=== PATIENT | male | born 1990 | race Caucasian/White ===

== ENCOUNTER 2016-08-19 16:06 | Outpatient (CLI) | payer OTHER ==
--- NOTE | 2016-08-19 17:29 | XRAY Preliminary Report ---
Exam: XR Hand 3 View RT IMPRESSION: 1. Diffuse right hand swelling. 2. No new fractures. Old fractures of the ulna styloid and right fifth metacarpal. 3. Normal alignment. [facility] SITE ID: [id number]
--- NOTE | 2016-08-19 17:59 | XRAY Report ---
EXAM: RIGHT HAND RADIOGRAPHY EXAM DATE: 08/19/2016 04:29 p.m. CLINICAL HISTORY: Rright hand injury/contusion with swelling. COMPARISON: 04/02/2006. TECHNIQUE: 3 views. FINDINGS: Bones: Chronic fracture deformities of the mid right fifth metacarpal and ulnar styloid. No new fract ures. Joints: Normal. No subluxations. Soft Tissues: Diffuse right hand swelling noted. No radiopaque foreign bodies. IMPRESSION: 1. Diffuse right hand swelling. 2. No new fractures. Old fractures of the ulna styloid and right fifth metacarpal. 3. Normal alignment. [facility] Referring Provider Line: [phone] SITE ID: [id number]
== END 2016-08-19 16:07 | disposition home or self-care (01) ==
LOC: DI 16:06
PROVIDERS: ATTEND Emergency Medicine
DX: S60.221A Contusion of right hand, initial encounter (principal)

== ENCOUNTER 2018-04-06 10:28 | Outpatient (CLI) | payer MEDICAID | END 2018-04-06 10:29 | disposition critical access hospital (66) | LOC: EMS 10:28 | PROVIDERS: ATTEND Surgery | DX: R25.0 Abnormal head movements (principal) | CPT/HCPCS: A0425; A0427; A0999 ==

== ENCOUNTER 2018-04-06 10:58 | Emergency (ER) | payer MEDICAID ==
[2018-04-06] MEDS ORDERED: SODIUM CHLORIDE 0.9% 1,000 ML IV ONE ×3 (11:10→18:01)
[2018-04-06 11:33] LABS: BASOPHILS % (AUTO) 0.2 %; EOSINOPHILS # (AUTO) 0.1 10^3/uL (0.0-0.7); EOSINOPHILS % (AUTO) 0.3 %; HGB - HEMOGLOBIN 13.7 g/dL (14.0-18.0); LYMPHOCYTES # (AUTO) 0.6 10^3/uL (1.5-3.5); LYMPHOCYTES % (AUTO) 3.8 %; MEAN CORPUSCULAR HEMOGLOBIN 29.8 pg (27.0-31.0); MEAN CORPUSCULAR HGB CONC 36.1 g/dL (32.0-36.0); MEAN CORPUSCULAR VOLUME 82.5 fL (80.0-94.0); MEAN PLATELET VOLUME 8.4 fL (7.4-11.4); MONOCYTES # (AUTO) 1.2 10^3/uL (0.0-1.0); MONOCYTES % (AUTO) 7.9 %; NEUTROPHILS # (AUTO) 13.5 10^3/uL (1.5-6.6); NEUTROPHILS % (AUTO) 87.8 %; PLT - PLATELET COUNT 143 10^3/uL (130-450); RED BLOOD COUNT 4.61 10^6/uL (4.70-6.10); RED CELL DISTRIBUTION WIDTH 13.4 % (12.0-15.0); WHITE BLOOD COUNT 15.4 x10^3/uL (4.8-10.8)
[2018-04-06 11:44] LABS: ALBUMIN 4.2 g/dL (3.2-5.5); ALBUMIN/GLOBULIN RATIO 1.7 (1.0-2.2); BILIRUBIN,TOTAL 1.6 mg/dL (0.2-1.0); CALCIUM 8.6 mg/dL (8.5-10.3); TOTAL PROTEIN 6.7 g/dL (6.7-8.2)
[2018-04-06 12:33] LABS: MUDS CUTOFF CONCENTRATIONS CUTOFF CONC BELOW:
[2018-04-06 12:43] LABS: AMPHETAMINE SCREEN,URINE POSITIVE (NEGATIVE); BENZODIAZEPINES SCREEN, URINE NEGATIVE (NEGATIVE); COCAINE SCREEN URINE NEGATIVE (NEGATIVE); METHADONE SCREEN, URINE NEGATIVE (NEGATIVE); METHAMPHETAMINES SCREEN, URINE POSITIVE (NEGATIVE); OPIATE SCREEN, URINE POSITIVE (NEGATIVE); OXYCODONE SCREEN, URINE NEGATIVE (NEGATIVE); PROPOXYPHENE SCREEN, URINE NEGATIVE (NEGATIVE); TRICYCLIC ANTIDEPRESSANT,URINE NEGATIVE (NEGATIVE)
--- NOTE | 2018-04-06 18:00 | ED Physician Documentation ---
PD HPI ALTERED MENTAL STATUS - Stated complaint Stated Complaint: OD - Chief complaint Chief Complaint: Neuro - History obtained from History obtained from: Patient, EMS - History of Present Illness Quality / character: Unresponsive Contributing factors: Substance abuse Basline status: Alert and oriented X 3, Ambulatory Treatment CUSTOMS GUARD: Narcan - Additional information Additional information: The patient is a 28-year-old male who arrives via ambulance after a female slunk skin curer called 911 because of agitation. The patient had been banging his head on the wall and furniture. When paramedics arrived they found him unresponsive except for painful stimulation. As they were bringing him to the ambulance he began dropping his oxygen saturation. Narcan was administered IV, with immediate response. He has a history of drug use, and was released from retirement 1 week ago. 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 Review of Systems Unable to obtain: AMS, Confused GI: denies: Vomiting Neurologic: reports: Altered mental status PD PAST MEDICAL HISTORY - Past Medical History Neuro: Head injury Psych: Anxiety, Panic attacks - Past Surgical History Past Surgical History: Yes - Present Medications Home Medications: Ambulatory Orders Medication Instructions Recorded Confirmed No Known Home Medications 04/06/18 04/06/18 - Allergies Allergies/Adverse Reactions: Allergies Allergy/AdvReac Type Severity Reaction Status Date / Time codeine Allergy Itching Verified 02/12/14 16:03 - Social History Does the pt smoke?: Yes Smoking Status: Current every day smoker Does the pt drink ETOH?: No Does the pt have substance abuse?: Yes Substance Use and Type: Meth, Heroin - Immunizations Immunizations are current?: Yes PD ED PE NORMAL - Vitals Vital signs reviewed: Yes (Tachycardic and febrile.) - General General: Well developed/nourished, Other (Awake male who is reluctant to answer questions. He is moving all extremities. On initial examination he seems to understand verbal communication, but his not willing to answer questions reliably.) - HEENT HEENT: PERRL, EOMI, Pharynx benign, Other (There is swelling and ecchymosis of his lower lip, with superficial abrasion of the buccal mucosa. Teeth are intact. Pupils are 3-4 mm, equal and reactive.) - Neck Neck: Supple, no meningeal sign, No adenopathy, No JVD - Cardiac Cardiac: No murmur, Other (Rapid rate, regular rhythm, without murmur.) - Respiratory Respiratory: Clear bilaterally - Abdomen Abdomen: Soft, Non tender, Other (Scaphoid abdomen.) - Back Back: No CVA TTP, No spinal TTP - Derm Derm: No rash - Extremities Extremities: No edema, No calf tenderness / cord, Other (There is a 1 cm blister on the tip of his left great toe.) - Neuro Neuro: No motor deficit, No sensory deficit, Other (Awake, and does respond to some questions; moves all extremities well.) Eye Opening: Spontaneous Motor: Obeys Commands Verbal: Confused GCS Score: 14 Results - Vitals Vitals: Oxygen O2 Source Room air - Labs Labs: Laboratory Tests 04/06/18 04/06/18 04/06/18 11:20 11:20 11:30 WBC 15.4 H RBC 4.61 L Hgb 13.7 L Hct 38.0 L MCV 82.5 MCH 29.8 MCHC 36.1 H RDW 13.4 Plt Count 143 MPV 8.4 Neut # (Auto) 13.5 H Lymph # (Auto) 0.6 L [place] # (Auto) 1.2 H Eos # (Auto) 0.1 Baso # (Auto) 0.0 Absolute Nucleated RBC 0.01 Nucleated RBC % 0.1 Sodium 131 L Potassium 3.8 Chloride 97 L Carbon Dioxide 20 L Anion Gap 14.0 H BUN 28 H Creatinine 1.0 Estimated GFR (MDRD) 89 Glucose 77 Calcium 8.6 Total Bilirubin 1.6 H AST 188 H ALT 106 H Alkaline Phosphatase 64 Total Protein 6.7 Albumin 4.2 Globulin 2.5 Albumin/Globulin Ratio 1.7 Lipase 28 Urine Opiates Screen POSITIVE H Ur Oxycodone Screen NEGATIVE Urine Methadone Screen NEGATIVE Ur Propoxyphene Screen NEGATIVE Ur Barbiturates Screen NEGATIVE Ur Tricyclics Screen NEGATIVE Ur Phencyclidine Scrn NEGATIVE Ur Amphetamine Screen POSITIVE H U Methamphetamines Scrn POSITIVE H U Benzodiazepines Scrn NEGATIVE Urine Cocaine Screen NEGATIVE U Cannabinoids Screen POSITIVE H - Rads (name of study) Head CT w/o Radiology: Prelim report reviewed, EMP read contemporaneously, See rad report (No acute intracranial abnormality.) PD MEDICAL DECISION MAKING - ED course Complexity details: reviewed results, re-evaluated patient, considered differential, d/w patient ED course: The patient's presentation is most consistent with altered mental status from drug overdose, with a urine drug screen that is positive for methamphetamine, opiates, and cannabis. His fever, agitation, and tachycardia is most likely due to methamphetamine. Paramedics were initially called because of agitation, but upon their arrival he was sedated, consistent with heroin overdose. After administration of Narcan the patient immediately became more responsive. On my initial examination he was subdued but coherent. As he was observed in the emergency department he went into a more methamphetamine characteristic fidgety state, and became less coherent. Head CT without contrast reveals no acute intracranial abnormality. He continued to be observed, and over several hours period of time he gradually became more coherent. Treatment in the emergency department included administration of normal saline, 3 L IV, and Tylenol 650 mg orally. He stood up numerous times to urinate. Department of corrections officers stayed at the bedside throughout the patient's time in the emergency department. He is being discharged in custody of DOC officers. I spoke with the RN at the [employer] of Corrections. Departure - Departure Disposition: 01 Home, Self Care Clinical Impression: Drug overdose, multiple drugs Qualifiers: Encounter type: initial encounter Injury intent: undetermined intent Qualified Code(s): T50.904A - Poisoning by unspecified drugs, medicaments and biological substances, undetermined, initial encounter Facial contusion Qualifiers: Encounter type: initial encounter Qualified Code(s): S00.83XA - Contusion of other part of head, initial encounter Condition: Stable Instructions: ED Drug Abuse General Comments: Medically clear for booking into custodial. Discharge Date/Time: 04/06/18 19:41
[2018-04-06] MEDS ORDERED: ACETAMINOPHEN 325 MG TABLET PO STA (18:12)
--- NOTE | 2018-04-06 19:17 | CT Report ---
Reason: altered mental status, with h/o head banging. Procedure Date: 04/06/2018 Accession Number: [id number] / [id number] Procedure: CT - Head W/O CPT Code: FULL RESULT: EXAM: CT HEAD EXAM DATE: 04/06/2018 06:59 PM. CLINICAL HISTORY: Altered mental status, with history of head banging. COMPARISON: Facial bones without 02/12/2014 3:33 PM Head without 02/12/2014 3:31 PM. TECHNIQUE: Multiaxial CT images were obtained from the foramen magnum to the vertex. Reformats: Sagittal and coronal. IV contrast: None. In accordance with CT protocol optimization, one or more of the following dose reduction techniques were utilized for this exam: automated exposure control, adjustment of mA and/or KV based on patient size, or use of iterative reconstructive technique. FINDINGS: Parenchyma: Chronic calcification in the region of the head of the right caudate nucleus likely postinflammatory. There is some motion artifact limiting evaluation of the skull base. Otherwise no obvious infarction or hemorrhage. Extraaxial Spaces: Normal for age. No subdural or epidural collections identified. Ventricles: Normal in size and position. Sinuses and Orbits: Imaged paranasal sinuses, orbits, and mastoids show no significant abnormality. Bones: No evidence of fracture or calvarial defect. Other: None. IMPRESSION: No acute intracranial abnormality. [facility]
[2018-04-06 19:37] VITALS: BP 125/72
== END 2018-04-06 19:41 | disposition home or self-care (01) ==
LOC: EDUNIT# → ED 10:58
DX: T40.604A Poisoning by unspecified narcotics, undetermined, initial encounter (principal); T40.7X4A Poisoning by cannabis (derivatives), undetermined, initial encounter; R41.82 Altered mental status, unspecified; S00.83XA Contusion of other part of head, initial encounter; W22.09XA Striking against other stationary object, initial encounter; R00.0 Tachycardia, unspecified; F17.200 Nicotine dependence, unspecified, uncomplicated
CPT/HCPCS: 36415; 70450; 80053; 80306; 83690; 85025; 96360; 96361; 99284; A9270

== ENCOUNTER 2019-01-13 20:50 | Emergency (ER) | payer OTHER, MEDICAID ==
[2019-01-13 21:00] VITALS: BP 116/59
[2019-01-13] MEDS ORDERED: PROPARACAINE 0.5% OPHTH DROPS 15 ML EACHEYE STA (21:02)
[2019-01-13] MEDS ORDERED: ERYTHROMYCIN OPHTH OINT 1 GM TUBE EACHEYE STA (21:23)
--- NOTE | 2019-01-13 21:27 | ED Physician Documentation ---
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 A day of eye pain and foreign body sensation without visual deficit. No history of eye problems or contact use.) Review of Systems Constitutional: reports: Reviewed and negative Throat: reports: Reviewed and negative Cardiac: reports: Reviewed and negative Respiratory: reports: Reviewed and negative PD PAST MEDICAL HISTORY - Past Medical History Past Medical History: Yes Neuro: Head injury Psych: Anxiety, Panic attacks - Past Surgical History Past Surgical History: Yes - Present Medications Home Medications: Ambulatory Orders Medication Instructions Recorded Confirmed Erythromycin Base [Erythromycin 1 appful OP 5XD 7 Days #1 oint...g. 01/13/19 Ophthalmic Ointment] - Allergies Allergies/Adverse Reactions: Allergies Allergy/AdvReac Type Severity Reaction Status Date / Time codeine Allergy Itching Verified 02/12/14 16:03 - Social History Does the pt smoke?: Yes Smoking Status: Current every day smoker Does the pt drink ETOH?: No Does the pt have substance abuse?: Yes - Immunizations Immunizations are current?: Yes - POLST Patient has POLST: No PD ED PE NORMAL - Vitals Vital signs reviewed: Yes - General General: Alert and oriented X 3, No acute distress - HEENT HEENT: Other (On exam there are couple small mobile foreign bodies, no stuck corneal foreign body. On fluorescein examination he had bilateral welders burn s.) - Neck Neck: Supple, no meningeal sign, No bony TTP - Neuro Neuro: Alert and oriented X 3, Normal speech Results - Vitals Vitals: Vital Signs - 24 hr 01/13/19 20:57 Temperature 36.9 C Heart Rate 88 Respiratory 18 Rate Blood Pressure 116/59 L O2 Saturation 97 Oxygen O2 Source Room air PD MEDICAL DECISION MAKING - ED course ED course: After the administration of proparacaine he was pain-free, he was irrigated. No further floor seen uptake except for the welders bond. Advised on the use of proper eye protection at work. The proparacaine was diluted tenfold with saline and he was given 2 mL of this in the bottle to use as needed for no more than 24 hours for pain. Departure - Departure Disposition: 01 Home, Self Care Clinical Impression: Welders' keratitis of both eyes Condition: Good Record reviewed to determine appropriate education?: Yes Instructions: ED Keratitis UV Follow-Up: Bandar Humphrey MD [Provider Admit Priv/Credential] - Within 3 Days Prescriptions: Erythromycin Base [Erythromycin Ophthalmic Ointment] 1 appful OP 5XD 7 Days #1 oint...g. Comments: It is imperative to wear appropriate eye protection at work. For pain you can take 1 drop of the diluted proparacaine every 2 hours as needed for pain, do not use it for more than 24 hours. Return for new or worsening symptoms.
== END 2019-01-13 21:38 | disposition home or self-care (01) ==
LOC: ED 20:50
DX: H16.133 Photokeratitis, bilateral (principal); T15.82XA Foreign body in other and multiple parts of external eye, left eye, initial encounter; T15.81XA Foreign body in other and multiple parts of external eye, right eye, initial encounter; W89.8XXA Exposure to other man-made visible and ultraviolet light, initial encounter; Y93.89 Activity, other specified; Y99.0 Civilian activity done for income or pay; F17.200 Nicotine dependence, unspecified, uncomplicated
CPT/HCPCS: 99282; 99283; J3490

== ENCOUNTER 2019-09-14 05:10 | Emergency (ER) | payer MEDICAID, OTHER ==
--- NOTE | 2019-09-14 05:10 | ED Physician Documentation ---
PD HPI ABD PAIN - Stated complaint Stated Complaint: ABD PAIN - History obtained from History obtained from: Patient, EMS - History of Present Illness Timing - onset: How many hours ago (2) Timing - duration: Hours Timing - details: Abrupt onset, Still present in ED (rapidly improving) Pain level max: 10 Pain level now: 6 Quality: Pain Location: Periumbilical Radiation: Other (no radiation) Improved by: Other (no ameliorating factors) Worsened by: Position ("standing straight up") Associated symptoms: No: Fever, Nausea, Vomiting, Diarrhea, Constipation, Chest pain Similar symptoms before: Has not had sx before Recently seen: Not recently seen - Additional information Additional information: BIBA. 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 Denies h/o similar symptoms. Denies n/v, denies diarrhea/constipation. Without intervention (such as medications), the pain has been rapidly improving shortly before this evaluation. Review of Systems Constitutional: denies: Fever, Chills, Sweats Cardiac: reports: Reviewed and negative Respiratory: reports: Reviewed and negative GI: reports: Abdominal Pain. denies: Abdominal Swelling, Nausea, Vomiting, Constipation, Diarrhea : denies: Dysuria, Frequency Musculoskeletal: denies: Back pain PD PAST MEDICAL HISTORY - Past Medical History Past Medical History: No - Present Medications Home Medications: Ambulatory Orders Medication Instructions Recorded Confirmed Erythromycin Base [Erythromycin 1 appful OP 5XD 7 Days #1 oint...g. 01/13/19 Ophthalmic Ointment] - Allergies Allergies/Adverse Reactions: Allergies Allergy/AdvReac Type Severity Reaction Status Date / Time codeine Allergy Itching Verified 09/14/19 05:19 Penicillins AdvReac Unknown Verified 09/14/19 05:19 - Living Situation Living Arrangement: reports: At home - Social History Does the pt have substance abuse?: No Substance Use and Type: Other (h/o opiate and methamphetamine use) PD ED PE NORMAL - Vitals Vital signs reviewed: Yes - General General: Alert and oriented X 3, No acute distress, Well developed/nourished - HEENT HEENT: Moist mucous membranes - Cardiac Cardiac: RRR, No murmur - Respiratory Respiratory: No respiratory distress, Clear bilaterally - Abdomen Abdomen: Normal bowel sounds, Soft, Non tender, Non distended - Derm Derm: Normal color, Warm and dry Results - Vitals Vitals: Oxygen O2 Source Room air - Labs Labs: Laboratory Tests 09/14/19 09/14/19 09/14/19 05:39 05:39 05:45 WBC 7.4 RBC 4.72 Hgb 13.9 L Hct 39.8 L MCV 84.3 MCH 29.4 MCHC 34.9 RDW 12.6 Plt Count 173 MPV 10.2 Neut # (Auto) 5.2 Lymph # (Auto) 1.4 L Cross # (Auto) 0.6 Eos # (Auto) 0.1 Baso # (Auto) 0.0 Absolute Nucleated RBC 0.00 Nucleated RBC % 0.0 Sodium 137 Potassium 4.0 Chloride 105 Carbon Dioxide 25 Anion Gap 7.0 BUN 26 H Creatinine 1.0 Estimated GFR (MDRD) 88 L Glucose 96 Calcium 9.4 Total Bilirubin 1.4 H AST 26 ALT 21 Alkaline Phosphatase 36 L Total Protein 7.3 Albumin 4.9 Globulin 2.4 Albumin/Globulin Ratio 2.0 Lipase 29 Urine Color YELLOW Urine Clarity CLEAR Urine pH 5.5 Ur Specific [place] >=1.030 H Urine Protein NEGATIVE Urine Glucose (UA) NEGATIVE Urine Ketones NEGATIVE Urine Occult Blood NEGATIVE Urine Nitrite NEGATIVE Urine Bilirubin NEGATIVE Urine Urobilinogen 0.2 (NORMAL) Ur Leukocyte Esterase NEGATIVE Ur Microscopic Review NOT INDICATED Urine Culture Comments NOT INDICATED - Rads (name of study) CT A/P Radiology: Prelim report reviewed, See rad report PD MEDICAL DECISION MAKING - ED course Complexity details: reviewed old records, reviewed results, re-evaluated patient, considered differential, d/w patient Departure - Departure Disposition: 01 Home, Self Care Clinical Impression: Enteritis Condition: Good Instructions: ED Gastroenteritis Non Infec Forms: Activity restrictions Discharge Date/Time: 09/14/19 08:08
[2019-09-14] MEDS ORDERED: KETOROLAC 30 MG/ML VIAL IVP STA (05:22)
[2019-09-14 05:48] LABS: BASOPHILS % (AUTO) 0.3 %; EOSINOPHILS # (AUTO) 0.1 10^3/uL (0.0-0.7); EOSINOPHILS % (AUTO) 1.8 %; HGB - HEMOGLOBIN 13.9 g/dL (14.0-18.0); LYMPHOCYTES # (AUTO) 1.4 10^3/uL (1.5-3.5); MEAN CORPUSCULAR HEMOGLOBIN 29.4 pg (27.0-31.0); MEAN CORPUSCULAR HGB CONC 34.9 g/dL (32.0-36.0); MEAN CORPUSCULAR VOLUME 84.3 fL (80.0-94.0); MEAN PLATELET VOLUME 10.2 fL (7.4-11.4); MONOCYTES # (AUTO) 0.6 10^3/uL (0.0-1.0); MONOCYTES % (AUTO) 7.7 %; NEUTROPHILS # (AUTO) 5.2 10^3/uL (1.5-6.6); NEUTROPHILS % (AUTO) 70.8 %; PLT - PLATELET COUNT 173 10^3/uL (130-450); RED BLOOD COUNT 4.72 10^6/uL (4.70-6.10); RED CELL DISTRIBUTION WIDTH 12.6 % (12.0-15.0); WHITE BLOOD COUNT 7.4 x10^3/uL (4.8-10.8)
[2019-09-14 05:54] LABS: BILIRUBIN,URINE NEGATIVE (NEGATIVE); GLUCOSE, URINE (UA) NEGATIVE (NEGATIVE); KETONES,URINE (UA) NEGATIVE (NEGATIVE); LEUKOCYTE ESTERASE, URINE NEGATIVE (NEGATIVE); NITRITE,URINE NEGATIVE (NEGATIVE); OCCULT BLOOD,URINE NEGATIVE (NEGATIVE); PH,URINE 5.5 PH (5.0-7.5); PROTEIN,URINE NEGATIVE (NEGATIVE); UROBILINOGEN,URINE 0.2 (NORMAL) E.U./dL (NORMAL)
[2019-09-14 05:55] LABS: CLARITY,URINE CLEAR (CLEAR)
[2019-09-14 06:00] LABS: ALBUMIN 4.9 g/dL (3.2-5.5); BILIRUBIN,TOTAL 1.4 mg/dL (0.2-1.0); CALCIUM 9.4 mg/dL (8.5-10.3); TOTAL PROTEIN 7.3 g/dL (6.7-8.2)
[2019-09-14 06:09] VITALS: BP 124/71
--- NOTE | 2019-09-14 08:53 | CT Report ---
PROCEDURE: Abdomen/Pelvis WO INDICATIONS: abd. pain TECHNIQUE: Noncontrast 5 mm thick sections acquired from the diaphragms to the symphysis. 5 mm coronal and sagi ttal reformats were then performed. For radiation dose reduction, the following was used: automated exposure control, adjustment of mA and/or kV according to patient size. COMPARISON: None. FINDINGS: Image quality: Excellent. ABDOMEN: Lung bases: Lung bases are clear. Heart size is normal. Solid organs: Liver and spleen are normal in size. Gallbladder is within normal limits Pancreas is normal in contours. No adrenal nodules. Kidneys are normal in size, without hydronephrosis or neph rolithiasis. Peritoneum and bowel: Multiple mildly dilated fluid-filled loops of small bowel within the pelvis. No free fluid or air. Appendix not seen. No evidence of appendicitis. Nodes and vessels: No retroperitoneal or mesenteric adenopathy by size criteria. Aorta and inferior vena cava are normal in caliber. Miscellaneous: No ventral hernias. PELVIS: Genitourinary: Urinary bladder is decompressed. Miscellaneous: No inguinal hernias or adenopathy. Bones: No suspicious bony lesions. No vertebral body compression fractures. IMPRESSION: 1. No evidence of urinary tract calcification, nor obstruction. 2. Fluid-filled and mildly distended small bowel loops, suggestive of gastroenteritis. 3. Appendix not seen. No evidence of appendicitis. 4. Concordant with pulmonary interpretation. Reviewed by: Ruddy Alex MD on 09/14/2019 8:51 AM PDT Approved by: Ruddy Alex MD on 09/14/2019 8:51 AM PDT Station ID: [id number]
== END 2019-09-14 08:08 | disposition home or self-care (01) ==
LOC: EDBD → EDUNIT# → ED 05:10
DX: K52.9 Noninfective gastroenteritis and colitis, unspecified (principal)
CPT/HCPCS: 36415; 74176; 80053; 81001; 81003; 83690; 85025; 87086; 99282; 99284

== ENCOUNTER 2020-10-07 14:11 | Emergency (ER) | payer MEDICAID, OTHER ==
--- NOTE | 2020-10-07 15:10 | ED Physician Documentation ---
History of Present Illness - Stated complaint Stated Complaint: c+, nausea,headache,bodyache - Chief complaint Chief Complaint: General - Additonal information Additional information: 30-year-old male was advised to come to the emergency department for COVID-19 screening. He was attempting to get into Drug rehab in [place] and a rapid Covid test came back neck positive therefore he was advised to come here. He denies cough headaches chills loss of taste or smell. He is not vaccinated and does not believe in getting vaccines. Review of Systems Constitutional: reports: Reviewed and negative Eyes: denies: Loss of vision, Decreased vision, Photophobia, Discharge, Irritation, Reviewed and negative, Other Ears: reports: Reviewed and negative Nose: reports: Reviewed and negative Throat: reports: Reviewed and negative Cardiac: reports: Reviewed and negative Respiratory: reports: Reviewed and negative PD PAST MEDICAL HISTORY - Past Medical History Cardiovascular: None Respiratory: None Neuro: Head injury Endocrine/Autoimmune: None GI: None : None HEENT: None Psych: Anxiety, Panic attacks Musculoskeletal: None Derm: None - Past Surgical History Past Surgical History: No - Present Medications Home Medications: Ambulatory Orders Medication Instructions Recorded Confirmed Erythromycin Base [Erythromycin 1 appful OP 5XD 7 Days #1 oint...g. 01/13/19 Ophthalmic Ointment] - Allergies Allergies/Adverse Reactions: Allergies Allergy/AdvReac Type Severity Reaction Status Date / Time codeine Allergy Itching Verified 10/07/20 14:29 Penicillins AdvReac Unknown Verified 10/07/20 14:29 - Social History Does the pt smoke?: Yes Smoking Status: Current every day smoker Does the pt drink ETOH?: No Does the pt have substance abuse?: No - Immunizations Immunizations are current?: Yes - POLST Patient has POLST: No PD ED PE NORMAL - General General: Alert and oriented X 3, No acute distress - HEENT HEENT: PERRL - Neck Neck: Supple, no meningeal sign - Cardiac Cardiac: RRR, No murmur - Respiratory Respiratory: Clear bilaterally - Abdomen Abdomen: Normal bowel sounds, Soft, Non tender, Non distended - Back Back: No CVA TTP - Derm Derm: Normal color, Warm and dry, No rash Results - Vitals Vitals: Vital Signs - 24 hr 10/07/20 14:29 Temperature 36.9 C Heart Rate 84 Respiratory 16 Rate Blood Pressure 97/68 O2 Saturation 99 Oxygen O2 Source Room air PD MEDICAL DECISION MAKING - ED course Complexity details: reviewed results, d/w patient ED course: 30-year-old male who carries no significant past medical history with the exception of opiate abuse presents the ER requesting a COVID-19 screen as a rapid test done in anticipation of entering drug rehab was positive. He denies systemic symptoms. He is not vaccinated for COVID-19. We will obtain a COVID- 19 reference test. Patient advised to remain in isolation until results known. Departure - Departure Disposition: 01 Home, Self Care Clinical Impression: Encounter for screening for COVID-19 Condition: Stable Record reviewed to determine appropriate education?: Yes Comments: You have a Covid test pending. You need to self quarantine until the result is done and negative. Do not leave your house. Do not get near anybody. The results should be done in 48 to 72 hours. We will call with a positive result, the fastest way to get a negative result for confirmation though is to go to the hospital website at [email or web address], click on the my [employer] tab and sign up for the patient portal. If any friends or family get sick and would like to have a Covid test done, but do not have signs or symptoms that would necessitate being hospitalized, we encourage testing through our coronavirus swabbing station, call [phone] to schedule an appointment.
[2020-10-07 15:24] VITALS: BP 111/74
== END 2020-10-07 15:23 | disposition home or self-care (01) ==
LOC: ED 14:11
DX: Z01.84 Encounter for antibody response examination (principal); F17.200 Nicotine dependence, unspecified, uncomplicated
CPT/HCPCS: 99281; 99283

== ENCOUNTER 2023-04-19 16:29 | Outpatient (CLI) | payer MEDICAID | END 2023-04-19 16:30 | disposition EMS.NT | LOC: EMS 16:29 | DX: R44.3 Hallucinations, unspecified (principal) ==